=== PATIENT | female | born 1985 | race Caucasian/White ===

== ENCOUNTER 2017-05-01 07:32 | Inpatient (IN) | payer BC ==
[~2017-05-01] VITALS: Ht 160 cm; Wt 106.8 kg
[2017-05-01 04:05] VITALS: BP 113/62
[2017-05-01] MEDS ORDERED: OXYTOCIN 30U/ 0.9% NaCL 500ML 500 ML IV ONE (07:51)
[2017-05-01] MEDS ORDERED: OXYTOCIN 30U/ 0.9% NaCL 500ML 500 ML IV PRN (07:51)
[2017-05-01] MEDS: LACTATED RINGERS 1,000 ML IV SCH ×3 (07:51→22:07)
[2017-05-01 07:58] VITALS: BP 131/86
[2017-05-01] MEDS ORDERED: TERBUTALINE 1 MG/ML, 1ML IVPush PRN (08:00)
[2017-05-01] MEDS ORDERED: ONDANSETRON 2MG/ML, 2ML IVPush PRN ×2 (08:00→16:30)
[2017-05-01] MEDS ORDERED: PENICILLIN GK 2,500,000 UNITS in DEXTROSE 5% 100 ML IVPB SCH ×2 (08:00→13:00)
[2017-05-01] MEDS ORDERED: CALCIUM CARBONATE 500 MG TAB.CHEW PO PRN (08:00)
[2017-05-01] MEDS ORDERED: PENICILLIN GK 5,000,000 UNITS in DEXTROSE 5% 100 ML IVPB ONE (08:00)
[2017-05-01] MEDS ORDERED: FENTANYL PF 100 MCG/2ML IV PRN (08:00)
[2017-05-01 08:22] LABS: HEMATOCRIT 37.9 % (34.6-47.8); HEMOGLOBIN 12.8 g/dL (11.7-16.4); WHITE BLOOD COUNT 11.7 x10^3/uL (3.4-10)
[2017-05-01] MEDS: PLEASE ENTER HEIGHT AND WEIGHT MC SCH ×2 (08:30→16:30)
[2017-05-01] MEDS ORDERED: OXYTOCIN 30U/ 0.9% NaCL 500ML 500 ML ONE ×2 (08:36→17:33)
[2017-05-01] MEDS ORDERED: LIDOCAINE 1%, 20ML ONE (08:37)
[2017-05-01] MEDS ORDERED: NEWBORN KIT ONE ×2 (08:37→09:16)
[2017-05-01] MEDS ORDERED: MISOPROSTOL 200 MCG TABLET ONE (08:38)
[2017-05-01] MEDS ORDERED: CALC200T3 PO (13:32)
[2017-05-01] MEDS ORDERED: CEPH-368 PO (13:32)
[2017-05-01] MEDS ORDERED: GLYB1.252 PO (13:32)
[2017-05-01] MEDS ORDERED: PREN-3 PO (13:32)
[2017-05-01] MEDS ORDERED: FENTANYL PF 100 MCG/2ML ONE ×2 (13:53→14:18)
[2017-05-01] MEDS: FENTANYL PF 100 MCG/2ML IVPush PRN (13:58)
[2017-05-01] MEDS ORDERED: BUPIVACAINE 0.25% ONE (14:18)
[2017-05-01] MEDS ORDERED: FENTANYL/BUPIV./NS/PF 250 ML EPIDCONT ONE (14:18)
[2017-05-01] MEDS ORDERED: LIDOCAINE/PF 1.5%-EPI 1:200K, 30ML ONE (14:22)
[2017-05-01] MEDS ORDERED: FENTANYL/BUPIV./NS/PF 250 ML EPIDCONT SCH (16:22)
[2017-05-01] MEDS ORDERED: EPHEDRINE 50 MG/ML, 1ML IVPush PRN (16:30)
[2017-05-01] MEDS ORDERED: LACTATED RINGERS 1,000 ML IVBOLUS PRN (16:30)
[2017-05-01] MEDS: OXYTOCIN 30U/ 0.9% NaCL 500ML 500 ML IV SCH (17:44)
[2017-05-01] MEDS ORDERED: ACETAMINOPHEN 325 MG TABLET PO PRN (18:00)
[2017-05-01] MEDS ORDERED: BISACODYL 10 MG SUPP PR PRN (18:00)
[2017-05-01] MEDS ORDERED: ONDANSETRON 2MG/ML, 2ML IV PRN ×2 (18:00→20:21)
[2017-05-01] MEDS ORDERED: OXYcodone/APAP 5/325MG TABLET PO PRN ×2 (18:00)
[2017-05-01] MEDS ORDERED: IBUPROFEN 800 MG TABLET PO PRN (18:00)
[2017-05-01] MEDS ORDERED: GLYCERIN ADULT SUPP PR PRN (18:00)
[2017-05-01] MEDS ORDERED: CARBOPROST TROMETHAMINE 250 MCG/ML, 1ML IM PRN (18:00)
[2017-05-01] MEDS ORDERED: METOCLOPRAMIDE 5 MG/ML, 2ML IV PRN (18:00)
[2017-05-01] MEDS ORDERED: MISOPROSTOL 200 MCG TABLET PR PRN (18:00)
[2017-05-01] MEDS ORDERED: METHYLERGONOVINE 0.2 MG/ML IM PRN (18:00)
[2017-05-01] MEDS ORDERED: IBUPROFEN 600 MG TABLET ONE (18:52)
[2017-05-01] MEDS: IBUPROFEN 600 MG TABLET PO PRN (19:17)
[2017-05-01 20:00] VITALS: BP 124/70
[2017-05-02] MEDS: LACTATED RINGERS 1,000 ML IV SCH ×2 (00:22→08:22)
[2017-05-02 00:30] VITALS: BP 123/64
[2017-05-02] MEDS: FENTANYL PF 100 MCG/2ML IVPush PRN (01:48)
[2017-05-02 02:34] LABS: HEMATOCRIT 35.6 % (34.6-47.8); HEMOGLOBIN 12.1 g/dL (11.7-16.4); WHITE BLOOD COUNT 15.2 x10^3/uL (3.4-10)
[2017-05-02] MEDS: OXYTOCIN 30U/ 0.9% NaCL 500ML 500 ML IV SCH (03:44)
[2017-05-02 04:05] VITALS: BP 113/62
[2017-05-02] MEDS: IBUPROFEN 600 MG TABLET PO PRN ×3 (05:45→19:11)
[2017-05-02 08:00] VITALS: BP 122/77
[2017-05-02] MEDS: DOCUSATE 100 MG CAPSULE PO PRN (09:28)
[2017-05-02] MEDS: PRENATAL VIT/IRON/FA 1 EACH TABLET PO SCH (09:28)
[2017-05-02 20:00] VITALS: BP 112/76
[2017-05-03] MEDS: DOCUSATE 100 MG CAPSULE PO PRN (07:47)
[2017-05-03] MEDS: IBUPROFEN 600 MG TABLET PO PRN (07:47)
[2017-05-03] MEDS: PRENATAL VIT/IRON/FA 1 EACH TABLET PO SCH (07:47)
[2017-05-03] MEDS ORDERED: OXYC-302 PO (08:04)
[2017-05-03] MEDS ORDERED: IBUP-1223 PO (08:05)
== END 2017-05-03 10:00 | disposition home or self-care (01) | DRG 775 ==
LOC: LDIP 07:32 → 2NW 19:40
PROVIDERS: ADMIT Student in an Organized Health Care Education/Training Program; ATTEND Student in an Organized Health Care Education/Training Program
PROC: 10E0XZZ Delivery of Products of Conception, External Approach (ICD-10-PCS; principal; 2017-05-01)
PROC: 0KQM0ZZ Repair Perineum Muscle, Open Approach (ICD-10-PCS; 2017-05-01)
PROC: 3E0P3VZ Introduction of Hormone into Female Reproductive, Percutaneous Approach (ICD-10-PCS; 2017-05-01)
PROC: 10907ZC Drainage of Amniotic Fluid, Therapeutic from Products of Conception, Via Natural or Artificial Opening (ICD-10-PCS; 2017-05-01)
PROC: 3E0R3BZ Introduction of Anesthetic Agent into Spinal Canal, Percutaneous Approach (ICD-10-PCS; 2017-05-01)
PROC: 00HU33Z Insertion of Infusion Device into Spinal Canal, Percutaneous Approach (ICD-10-PCS; 2017-05-01)
DX: O99.824 Streptococcus B carrier state complicating childbirth (principal); Z68.41 Body mass index [BMI] 40.0-44.9, adult; Z37.0 Single live birth; O24.425 Gestational diabetes mellitus in childbirth, controlled by oral hypoglycemic drugs; O70.1 Second degree perineal laceration during delivery; O99.214 Obesity complicating childbirth; Z3A.39 39 weeks gestation of pregnancy
CPT/HCPCS: 36415; 82962; 85025; 86850; 86900; J2405; J2540; J3010; J3490; J2590; J7120